=== PATIENT | female | born 1945 | race Caucasian/White ===

== ENCOUNTER 2017-06-12 15:58 | Emergency (ER) | payer OTHER ==
[~2017-06-12] VITALS: Ht 147.3 cm; Wt 54.0 kg
[2017-06-12 16:16] VITALS: BP 160/78
--- NOTE | 2017-06-12 18:27 | NUR ---
Patient transferred to [facility] via wheelchair accompanied by family to be evaluated by Dr. Levin as fast track. RN evaluating patient.
--- NOTE | 2017-06-12 18:31 | NUR ---
Dr. Levin evaluating patient as fast track in [facility].
[2017-06-12 19:31] VITALS: BP 160/78
--- NOTE | 2017-06-12 19:31 | NUR ---
Patient discharged with v/s stable. Written and verbal after care instructions given and explained. Patient alert, oriented and verbalized understanding of instructions. Wheel Chair Assisted with to car. All questions addressed prior to discharge. ID band removed. Patient advised to follow up with PMD. Rx of NORCO given. Patient educated on indication of medication including possible reaction and side effects. Opportunity to ask questions provided and answered.
== END 2017-06-12 19:31 | disposition home or self-care (01) ==
LOC: MED 15:58
DX: M17.12 Unilateral primary osteoarthritis, left knee (principal); I10 Essential (primary) hypertension
CPT/HCPCS: 73562; 99284